=== PATIENT | female | born 2005 | race Caucasian/White ===

== ENCOUNTER 2023-03-31 09:56 | Emergency (ER) | payer OTHER, MEDICAID, SELFPAY ==
--- NOTE | 2023-03-31 10:08 | ECG_ITS ---
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 Measurements Intervals [place] Rate: 128 P: 75 NC: 155 QRS: 75 QRSD: 96 T: 56 QT: 334 QTc: 489 Interpretive Statements SINUS TACHYCARDIA INCOMPLETE RIGHT BUNDLE BRANCH BLOCK [90+ ms QRS DURATION, TERMINAL R IN V1/V2, 40+ ms S IN I/aVL/V4/V5/V6] NONSPECIFIC T-WAVE ABNORMALITY ABNORMAL RHYTHM ECG No previous ECG available for comparison Electronically Signed On 03-31-2023 20:55:20 INTERIOR PLANT CARETAKER by Nathaniel Mack M.D. [id number]
[2023-03-31 10:13] VITALS: BP 140/90; PULSE 121; RESP 18; TEMP 36.6; O2SAT 100; BMI 25.0
--- NOTE | 2023-03-31 10:13 | XR_ITS ---
WS: [id number] Portable AP upright chest, 03/31/2023 Clinical Data: chest pain Comparison: None. Findings: No nodules, masses or effusions are seen. The heart is normal. The pulmonary vascularity is not increased. No pneumonia or pneumothorax is seen. Impression: Negative chest.
--- NOTE | 2023-03-31 10:54 | ED_ITS ---
HPI - General Adult General: Chief complaint: Chest Pain Stated complaint: tightness in chest, N/V Time Seen by Provider: 03/31/23 10:27 Source: patient Mode of arrival: ambulatory Limitations: no limitations History of Present Illness: Patient is a 18-year-old female with no known past medical history here for concerns of intermittent episodes of chest pain over the past several months. She also over the past few days noted high blood pressure readings at home with systolics being in the 140s-150s and diastolics being in the 90s-100s. She states she does not routinely check her blood pressure so is not sure what it averages. Patient states she has seen her primary care provider for the chest pains. She did wear a Holter monitor back in December. She reported 26 events of dizziness and rapid/fast heartbeat but no significant arrhythmias were noted with the symptoms. Remainder of Holter monitoring results were normal. Patient states she has not noticed any shortness of breath, orthopnea, lower extremity swelling. Reports intermittent headaches but not sure if these correlate to her high blood pressure readings. Has been having the headaches for a while now . She has not had any fevers or recent illness. Onset (ago): month(s) Location: head and chest Pain Consistency: intermittent Relieving factors: none Exacerbating factors: none Associated symptoms: Reports chest pain, headache(s) and nausea; Deny confusion, dyspnea, rash, palpitations, syncope or vomiting Review of Systems Const: Denies: fever(s) or chills Eyes: Denies: change in vision or blurry vision Card: Reports: chest pain; Denies: palpitations, irregular heart rhythm, edema, swelling of feet/ankles, lightheadedness, syncope, pre-syncope, dyspnea on exertion, orthopnea, leg pain with exertion or acrocyanosis Resp: Denies: dyspnea, productive cough, non-productive cough, wheezing, pain on inspiration, hemoptysis or chest congestion GI: Reports: nausea; Denies: abdominal pain, vomiting, heartburn or diarrhea : Denies: flank pain or dysuria Musc: Denies: neck pain, back pain, extremity pain, extremity swelling or joint pain Skin/Breast: Denies: rash Neuro: Reports: headache(s); Denies: numbness in extremities, weakness in extremities, sensory changes, difficulty walking, dizziness, vertigo, confusion, behavioral changes, Slurred speech present or difficulty communicating thoughts Physical Exam Const: COMMON NORMALS: no acute distress, average body habitus, patient oriented x3, no limitations, healthy appearing, alert and well nourished GENERAL APPEARANCE: cooperative ORIENTATION/CONSCIOUSNESS: Yes awake, Yes oriented to person, Yes oriented to place and Yes oriented to time HENMT: COMMON NORMALS: normocephalic and atraumatic HEAD & SCALP: normal to inspection, normocephalic and atraumatic Eye: COMMON NORMALS: no scleral icterus Neck/C-Spine: COMMON NORMALS: full ROM, no lymphadenopathy, supple and no meningeal signs Chest: COMMONS NORMALS: normal inspection of the chest and normal palpation of entire chest wall Resp: COMMON NORMALS: normal respiratory effort and clear to auscultation bilaterally AUSCULTATION: clear to auscultation bilaterally Cardio: COMMON NORMALS: regular rate and regular rhythm RATE: regular rate RHYTHM: regular rhythm OTHER: tachycardic upon arrival to the ED but this has subsided throughout her stay GI: COMMON NORMALS: Normal to inspection, nondistended, normoactive bowel sounds present, Soft to palpation, non-tender, No hepatosplenomegaly present and no masses PALPATION: Yes Soft to palpation and Yes No hepatosplenomegaly present : COMMON NORMALS: Yes no CVA tenderness BLADDER/KIDNEY EXAM: Yes no CVA tenderness Back/Pelvis: COMMON NORMALS: no CVA tenderness and thoracic and lumbar spine normal to inspection Extremity: COMMON NORMALS: normal to inspection GENERAL: Yes normal exam except as noted Neuro: MARIO COMA SCALE: document GCS findings Mario coma scale eye op ening: Spontaneous Mario coma scale verbal response: Orientated Padroni coma scale motor response: Obey commands Mario coma scale total score: 15 COMMON NORMALS: patient oriented x3, moves all extremities, no focal motor deficits, no sensory deficits noted and gait normal SENSORIUM/ORIENTATION: Yes alert, Yes oriented to person, Yes oriented to place and Yes oriented to time MENINGEAL SIGNS: Yes no meningeal signs Skin: COMMON NORMALS: no rashes or lesions noted GENERAL SKIN EXAM: no rashes or lesions noted Course Vital Signs: Vital signs: Vital Signs Temperature 97.9 F 03/31/23 10:13 Pulse Rate 92 03/31/23 12:00 Respiratory Rate 18 03/31/23 12:00 Blood Pressure 158/93 03/31/23 12:00 Pulse Oximetry 100 03/31/23 12:00 Oxygen Delivery Me thod Room Air 03/31/23 12:00 MDM - General Adult Medical Decision Making Blood pressure has been elevated here with two separate readings with systolics being 140s?150s/90s. Blood work is normal. CXR negative. EKG obtained in triage showing sinus tachycardia. Again tachycardia resolved once she got back to a room and she remained normal sinus throughout her stay. Cardiac enzymes not ordered as she has had intermittent pains for months. I recommend she keep a detailed BP log and discuss with primary care. She is a young, normal weight, healthy appearing individual whom I feel work up for possible causes of neelam longoria hypertension is warranted. She is requesting a referral to cardiology-this will be provided. Return to ED precautions given. Lab Data 03/31/23 11:02 03/31/23 11:02 Laboratory Results WBC 5.53 10^3/uL (4.5-13.0) 03/31/23 11:02 RBC 4.52 10^6/uL (3.85-5.65) 03/31/23 11:02 Hgb 13.30 g/dL (12.4-14.8) 03/31/23 11:02 Hct 40.1 % (36-47) 03/31/23 11:02 MCV 88.7 fl (85-98) 03/31/23 11:02 MCH 29.4 pg (27-33) 03/31/23 11:02 MCHC 33.2 g/dL (30-55) 03/31/23 11:02 RDW 11.9 % (12.1-15.1) L 03/31/23 11:02 Plt Count 275 10^3/cmm (157-399) 03/31/23 11:02 MPV 8.8 fL (7.4-10.4) 03/31/23 11:02 Neut % (Auto) 59.3 % 03/31/23 11:02 Lymph % (Auto) 32.9 % 03/31/23 11:02 [place] % (Auto) 5.6 % 03/31/23 11:02 Eos % (Auto) 1.8 % 03/31/23 11:02 Baso % (Auto) 0.4 % 03/31/23 11:02 Neut # (Auto) 3.28 10^3/uL (1.8-8.0) 03/31/23 11:02 Lymph # (Auto) 1.8 10^3/uL (1.5-6.5) 03/31/23 11:02 [place] # (Auto) 0.3 10^3/uL (0.2-0.9) 03/31/23 11:02 Eos # (Auto) 0.1 10^3/uL (0.0-0.8) 03/31/23 11:02 Baso # (Auto) 0.0 10^3/uL (0.0-0.1) 03/31/23 11:02 Nucleated RBC % (auto) 0 % 03/31/23 11:02 Nucleated RBCs # 0.0 /100WBC 03/31/23 11:02 Sodium 138 mmol/L (136-145) 03/31/23 11:02 Potassium 4.3 mmol/L (3.5-5.1) 03/31/23 11:02 Chloride 104 mmol/L (98-107) 03/31/23 11:02 Carbon Dioxide 23 mmol/L (22-29) 03/31/23 11:02 Anion Gap 15.3 (5-19) 03/31/23 11:02 BUN 6 mg/dL (6-20) 03/31/23 11:02 Creatinine 0.6 mg/dL (0.5-0.9) 03/31/23 11:02 GFR Calculation 127.5 mL/min (90-130) 03/31/23 11:02 Glucose 96 mg/dL (65-115) 03/31/23 11:02 Calculated Osmolality 283 mOsm/kg (285-295) L 03/31/23 11:02 Calcium 9.5 mg/dL (8.5-10.5) 03/31/23 11:02 Total Bilirubin 0.2 mg/dL (0.15-1.2) 03/31/23 11:02 AST 12 U/L (0-32) 03/31/23 11:02 ALT 18 U/L (0-33) 03/31/23 11:02 Alkaline Phosphatase 47 U/L (35-105) 03/31/23 11:02 Total Protein 7.4 g/dL (6.6-8.7) 03/31/23 11:02 Albumin 4.3 g/dL (3.5-5.2) 03/31/23 11:02 Globulin 3.1 g/dL (1.3-4.6) 03/31/23 11:02 HCG, Qual Negative (Negative) 03/31/23 11:02 Urine Color Yellow (Yellow) 03/31/23 11:28 Urine Appearance Sl hazy (CLEAR) A 03/31/23 11:28 Urine pH 7 (5-7) 03/31/23 11:28 Ur Specific [place] 1.005 (1.005-1.030) 03/31/23 11:28 Urine Protein Neg (Negative) 03/31/23 11:28 Urine Glucose (UA) Norm (Normal) 03/31/23 11:28 Urine Ketones Negative (Negative) 03/31/23 11:28 Urine Blood 2+ (Negative) H 03/31/23 11:28 Urine Nitrate Negative (Negative) 03/31/23 11:28 Urine Bilirubin Neg (Negative) 03/31/23 11:28 Urine Urobilinogen Norm mg/dL (Negative) 03/31/23 11:28 Ur Leukocyte Esterase Negative (Negative) 03/31/23 11:28 Urine RBC 0-4 /hpf (0-2) H 03/31/23 11:28 Urine WBC 10-15 /hpf (0-5) H 03/31/23 11:28 Ur Squamous Epith Cells 10-15 /hpf (0-5) H 03/31/23 11:28 Amorphous Sediment 1+ /hpf 03/31/23 11:28 Urine Bacteria Trace /hpf (NONE) 03/31/23 11:28 All radiology interpretation(s) finalized by discharge Discharge Plan Discharge Patient Disposition: Home Clinical Impression: Elevated blood pressure reading, Atypical chest pain Condition: Stable Prescriptions: No Action No Known Home Medications Discharge Orders: Discharge ED (Routine); Ordered 03/31/23 Ordered By: Miranda Thomson Referrals: Nehemiah Ferrer MD [Primary Care Provider] - Activity Restrictions/Additional Instructions: You need to begin keeping a detailed blood pressure log (take a pressure in the morning, afternoon, and evening) and follow up with your primary care provider. If it continually runs high then your provider will assess you for the need to start anti-hypertensive medication. They may also evaluate further into secondary causes for your elevated blood pressures. Stand Alone Forms: Work/School Release Coding Level of Care Code ED Director Of Marketing And Promotions for Rosalia Washington
[2023-03-31 11:12] LABS: Basophils % 0.4 %; Eosinophils # 0.1 10^3/uL (0.0-0.8); Eosinophils % 1.8 %; Hematocrit 40.1 % (36-47); Lymphocytes # 1.8 10^3/uL (1.5-6.5); Lymphocytes % 32.9 %; Mean Corpuscular HGB Conc 33.2 g/dL (30-55); Mean Corpuscular Hemoglobin 29.4 pg (27-33); Mean Corpuscular Volume 88.7 fl (85-98); Mean Platelet Volume 8.8 fL (7.4-10.4); Monocytes # 0.3 10^3/uL (0.2-0.9); Monocytes % 5.6 %; Neutrophils # 3.28 10^3/uL (1.8-8.0); Neutrophils % 59.3 %; Nucleated Red Blood Cells % 0 %; Platelet Count 275 10^3/cmm (157-399); Red Blood Count 4.52 10^6/uL (3.85-5.65); Red Cell Distribution Width 11.9 % (12.1-15.1); White Blood Count 5.53 10^3/uL (4.5-13.0)
[2023-03-31 11:31] LABS: Alanine Aminotransferase 18 U/L (0-33); Albumin Level 4.3 g/dL (3.5-5.2); Alkaline Phosphatase 47 U/L (35-105); Anion Gap 15.3 (5-19); Aspartate Amino Transferase 12 U/L (0-32); Blood Urea Nitrogen 6 mg/dL (6-20); Calcium 9.5 mg/dL (8.5-10.5); Carbon Dioxide 23 mmol/L (22-29); Chloride 104 mmol/L (98-107); Creatinine Clr Calc Pharmacy 150.4094; Globulin 3.1 g/dL (1.3-4.6); Glomerular Filtration Rate 127.5 mL/min (90-130); Glucose 96 mg/dL (65-115); Osmolality Calculated 283 mOsm/kg (285-295); Potassium 4.3 mmol/L (3.5-5.1); Sodium 138 mmol/L (136-145); Total Bilirubin 0.2 mg/dL (0.15-1.2); Total Protein 7.4 g/dL (6.6-8.7)
[2023-03-31 11:44] LABS: HCG, Serum Qual Negative (Negative)
[2023-03-31 11:53] LABS: Add Urine Culture? No; Add Urine Microscopic? YES; Amorphous Sediment Urine 1+ /hpf; Bacteria Urine TRACE /hpf; Bilirubin Urine Neg (Negative); Blood Urine 2+ (Negative); Glucose Urine UA Norm (Normal); Ketones Urine Negative (Negative); Leukocyte Esterase Urine Negative (Negative); Nitrate Urine Negative (Negative); Protein Urine Neg (Negative); RBC Urine 0-4 /hpf (0-2); Specific Gravity, Urine 1.005 (1.005-1.030); Urine Appearance SL Hazy (CLEAR); Urine Color Yellow (Yellow); Urobilinogen Urine Norm (Negative); pH Urine 7 (5-7)
[2023-03-31 12:00] VITALS: BP 158/93; PULSE 92; RESP 18; O2SAT 100
--- NOTE | 2023-03-31 12:30 | DCPLANNER ---
Referral was sent to heart care at 1230 on 03/31.. Clinic to contact patient
== END 2023-03-31 12:29 | disposition home or self-care (01) ==
PROVIDERS: Emergency Provider Physician Assistant; PCP Family Medicine
DX: R07.89 Other chest pain (principal); R03.0 Elevated blood-pressure reading, without diagnosis of hypertension; R00.0 Tachycardia, unspecified
CPT/HCPCS: 36415; 71045; 80053; 81001; 84703; 85025; 93005; 99285

== ENCOUNTER → 2023-05-17 13:22 | Outpatient (BNVA) | payer OTHER, MEDICAID, SELFPAY | PROVIDERS: PCP Family Medicine; Referring Provider Physician Assistant; Visit Provider Internal Medicine | DX: R07.89 Other chest pain (principal); R00.0 Tachycardia, unspecified | CPT/HCPCS: 93005 ==

== ENCOUNTER 2023-05-25 06:04 | Outpatient (CLI) | payer OTHER, MEDICAID, SELFPAY ==
--- NOTE | 2023-05-25 06:30 | USCV_ITS ---
Brooke Wolf Age: 18 Gender: F : 2005 Exam Date: 05/25/2023 06:26 Ordering Phys: Apolniar Torres M.D ([email or web address]) Technologist: [place] [facility] [place]: htn BP: 140 / 90 HR: 76 Rhythm: Sinus Technical Quality: Adequate MEASUREMENTS (Male / Female) Normal Values 2D ECHO LV Diastolic Diameter PLAX 4.5 cm 4.2 - 5.9 / 3.9 - 5.3 cm LV Systolic Diameter PLAX 2.7 cm IVS Diastolic Thickness 1.0 cm 0.6 - 1.0 / 0.6 - 0.9 cm IVS Systolic Thickness 1.3 cm LVPW Diastolic Thickness 1.0 cm 0.6 - 1.0 / 0.6 - 0.9 cm LVPW Systolic Thickness 1.3 cm LVOT Diameter 2.0 cm LV Ejection Fraction 2D Teich 71.1 % LV Ejection Fraction MOD 2C 69.7 % LV Ejection Fraction 2C AL 69.7 % LA Diameter 2.8 cm IVC Diameter 1.4 cm M-MODE MV E Point Septal Separation 0.8 cm DOPPLER AV Peak Velocity 149.0 cm/s LVOT Peak Velocity 106.0 cm/s AV Area Cont Eq vti 2.1 cm squared AV Area Cont Eq pk 2.2 cm squared MV Area PHT 5.0 cm squared Mitral E to A Ratio 1.8 MV E' Velocity 58.5 cm/s Mitral E to MV E' Ratio 6.8 Mitral E to LV E' Lateral Ratio 4.9 Mitral E to LV E' Septal Ratio 11.1 TR Peak Velocity 136.3 cm/s TR Peak Gradient 7.4 mmHg TV Peak E Velocity 88.0 cm/s Right Atrial Pressure 3.0 mmHg Pulmonary Artery Systolic Pressu 10.4 mmHg FINDINGS Left Ventricle Left ventricle is normal in size. LV systolic function is normal with EF of 60 to 65%. No regional wall motion abnormalities are seen. Right Ventricle Normal in size and function. Right Atrium Normal in size Left Atrium Normal in size Mitral Valve Structurally normal mitral valve. No significant stenosis or regurgitation. Aortic Valve Structurally normal aortic valve. No significant stenosis or regurgitation. Tricuspid Valve Trace tricuspid regurgitation. Insufficient TR jet to calculate RVSP. Pulmonic Valve Not well-visualized Pericardium Normal Aorta Normal in size IVC Appears to be normal CONCLUSIONS LV systolic function is normal with EF of 60 to 65%. Trace tricuspid regurgitation No comparison studies are available Apolinar Torres MD (Electronically Signed) Final Date: 27 May 2023 16:03 S
--- NOTE | 2023-05-25 07:15 | USCV_ITS ---
Brooke Wolf Age: 18 Gender: F : 2005 Exam Date: 05/25/2023 06:41 Ordering Phys: Apolinar Torres M.D ([email or web address]) Technologist: [place] [facility] [place]: htn Aortic Velocity @ SMA (cm/s) 82.6 RIGHT KIDNEY LEFT KIDNEY Velocity (cm/s) Velocity (cm/s) Sys/Ely Sys/Ely Resistive Index Resistive Index 171.9 / 56.8 0.67 Proximal Renal Artery 81.7 / 19.7 0.76 169.1 / 59.6 0.65 Mid Renal Artery 95.7 / 38.9 0.59 126.2 / 51.1 0.60 Distal Renal Artery 74.9 / 30.3 0.59 97.3 / 31.8 0.67 Hilar 98.6 / 98.6 0.00 60.4 / 18.4 0.69 Upper Pole 79.1 / 27.0 0.66 83.9 / 29.9 0.64 Mid Pole 86.7 / 13.8 0.82 70.6 / 70.6 0.00 Lower Pole 49.1 / 19.8 0.60 2.10 Renal Aortic Ratio 1.16 Accleration Index (cm/sec2) 1868.0 Hilar 1882.0 0 0 901.00 Upper Pole 1982.0 0 1129.0 Mid Pole 1075.0 0 0 939.00 Lower Pole 492.00 93.4 Kidney Length (mm) 101.1 FINDINGS Comparison: none. Minimal elevation of right renal artery velocity. Normal size kidneys. CONCLUSIONS There is no sonographic evidence of hemodynamically significant renal artery stenosis bilaterally. Dr. Ivy Aviles DO (Electronically Signed) Final Date: 25 May 2023 09:56 S
== END 2023-05-25 06:05 | disposition home or self-care (01) ==
LOC: RAD 06:04
PROVIDERS: PCP Family Medicine; Visit Provider Internal Medicine
DX: R07.9 Chest pain, unspecified (principal); I10 Essential (primary) hypertension
CPT/HCPCS: 93306; 93975

== ENCOUNTER 2023-06-14 16:39 | Outpatient (CLI) | payer OTHER, MEDICAID, SELFPAY ==
[2023-06-24 23:20] LABS: Metanephrines Total Urine 1050 mL; Urine Metanephrines Total 276 mcg/24 h (94-604)
== END 2023-06-14 16:40 | disposition home or self-care (01) ==
PROVIDERS: PCP Family Medicine; Visit Provider Internal Medicine
DX: I10 Essential (primary) hypertension (principal)
CPT/HCPCS: 83835

== ENCOUNTER → 2024-04-03 14:20 | Outpatient (BNVA) | payer OTHER, MEDICAID, SELFPAY | PROVIDERS: PCP Family Medicine; Visit Provider Nurse Practitioner Family | DX: J02.9 Acute pharyngitis, unspecified (principal); B34.9 Viral infection, unspecified | CPT/HCPCS: 87081; 87880 ==

== ENCOUNTER → 2024-05-10 12:02 | Outpatient (BNVA) | payer OTHER, SELFPAY | PROVIDERS: PCP Family Medicine; Visit Provider Family Medicine | DX: R00.0 Tachycardia, unspecified (principal); F51.04 Psychophysiologic insomnia; Z76.89 Persons encountering health services in other specified circumstances | CPT/HCPCS: 80048; 84439; 84443; 85025 ==

== ENCOUNTER 2024-12-18 13:02 | Emergency (ER) | payer SELFPAY ==
[2024-12-18 13:12] VITALS: BP 124/78; PULSE 66; RESP 14; TEMP 36.9; O2SAT 98; BMI 28.5
--- NOTE | 2024-12-18 13:42 | CT_ITS ---
WS: [id number] CT ABDOMEN PELVIS TECHNIQUE: Contrast-enhanced CT of the abdomen and pelvis with coronal and sagittal reformatted images. CLINICAL INFORMATION: abd pain COMPARISON: None. DLP: 538.[address] scans at [facility] use at least one of these dose optimization techniques: automated exposure control; mA and/or kV adjustment per patient size (includes targeted exams where dose is matched to clinical indication); or iterative reconstruction. FINDINGS: Appendix not definitely visualized but no evidence of acute appendicitis. Normal ileocecal valve. Few fluid-filled normal caliber small bowel loops in the RIGHT lower quadrant. No evidence of high-grade obstruction. Normal-appearing multi follicular ovaries bilaterally. Anteverted uterus. Trace fluid in the cul-de-sac. Hepatomegaly. Normal portal vein and splenic vein. Normal spleen. Normal GE junction. Normal gallbladder. Normal celiac and SMA. Normal pancreas. Adrenal glands are normal. No hydronephrosis in either kidney. Normal sigmoid colon. Moderate constipation in the RIGHT colon and cecum and transverse colon. Calcified granuloma RIGHT lower lobe. CT/CT abdomen pelvis w con* [id number] IMPRESSION: 1. Appendix not definitely visualized but no evidence of acute appendicitis. 2. Multi follicular ovaries bilaterally. Trace fluid in the cul-de-sac. 3. Moderate RIGHT colon and transverse colon constipation extending to the cec um. 4. Normal caliber small bowel loops in the RIGHT lower quadrant with an air-fl uid level. No evidence of obstruction. 5. No other acute findings.
--- NOTE | 2024-12-18 13:44 | W.ED.ABDPA2 ---
HPI - Abdominal Pain General: Chief Complaint: Abdominal Pain Stated Complaint: R side ABD Pain Time Seen by Provider: 12/18/24 13:31 Source: patient Mode of arrival: ambulatory Limitations: no limitations History of Present Illness: 19-year-old female who states that she has been having right sided abdominal pain since Monday states been intermittent in nature pain is currently 2 out of 10 states its whole right side right lower and right upper she denies any vomiting denies any fevers. Denies any diarrhea. She denies any worse improved factors. No history of surgeries in the past Associated Symptoms: Denies chills, diarrhea, dysuria, fever(s), nausea and vomiting Related Data Home Medications ?Medication ?Instructions ?Recorded ?Confirmed naproxen sodium 220 mg tablet 440 mg PO Q12H PRN Fever Or Pain 12/18/24 12/18/24 Previous Rx's ?Medication ?Instructions ?Recorded norgestimate 0.25 mg-ethinyl 1 tab PO DAILY #84 tabs 09/23/24 estradiol 0.035 mg tablet (Sprintec (28)) Allergies Allergy/AdvReac Type Severity Reaction Status Date / Time shellfish derived Allergy Severe ALGY-Anaphy Verified 12/18/24 13:16 laxis hazelnut Allergy Intermediate rash Verified 12/18/24 13:16 cetirizine (From [facility]) Allergy ALGY-Hives Verified 12/18/24 13:16 Fragrance Allergy Intermediate hives Uncoded 12/18/24 13:16 Review of Systems Const: Denies: fever(s), chills, body aches or change in appetite ENMT: Denies: throat pain or dental pain Card: Denies: chest pain Resp: Denies: dyspnea GI: Reports: abdominal pain; Denies: nausea, vomiting or diarrhea : Denies: dysuria Musc: Denies: neck pain or back pain Skin/Breast: Denies: rash Neuro: Denies: headache(s) PFSH ED PFSH: Medical History (Updated 12/18/24 @ 15:17 by Richard Aleman MD) Tachycardia has seen cardio; told it was POTS Chronic insomnia Surgical History History of tonsillectomy Family History Father No problems noted. 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 Physical Exam Const: COMMON NORMALS: no acute distress, patient oriented x3 and healthy appearing HENMT: COMMON NORMALS: normocephalic and atraumatic HEAD & SCALP: normocephalic and atraumatic Eye: COMMON NORMALS: conjunctivae normal CONJUNCTIVA: Yes conjunctivae normal Neck/C-Spine: COMMON NORMALS: full ROM and supple Chest: COMMONS NORMALS: normal inspection of the chest Resp: COMMON NORMALS: normal respiratory effort Cardio: COMMON NORMALS: regular rate, regular rhythm and No murmurs present (Cardio) RATE: regular rate RHYTHM: regular rhythm GI: COMMON NORMALS: Normal to inspection, nondistended, normoactive bowel sounds present, Soft to palpation and no masses PALPATION: Yes Soft to palpation OTHER: right sided abd tenderness Extremity: COMMON NORMALS: normal to inspection and full ROM Neuro: COMMON NORMALS: patient oriented x3, moves all extremities and no focal motor deficits Psych: COMMON NORMALS: mental status grossly normal, Normal thought process present and cooperative THOUGHT PROCESS: Normal thought process present Skin: COMMON NORMALS: no rashes or lesions noted and no wounds GENERAL SKIN EXAM: no rashes or lesions noted Course Vital Signs: Vital signs: Vital Signs Temperature 98.4 F 12/18/24 13:12 Pulse Rate 66 12/18/24 13:12 Respiratory Rate 14 12/18/24 13:12 Blood Pressure 125/73 12/18/24 14:14 Pulse Oximetry 100 12/18/24 14:14 Oxygen Delivery Me thod Room Air 12/18/24 13:12 MDM - Abdominal Pain Medical Decision Making Patient presents with abdominal pain exam here is benign CT showed no acute findings she feels improved she stable for discharge follow-up PCP return if worsening. Medical Records I reviewed the patient's medical records. Lab Data I reviewed the patient's lab results. 12/18/24 13:37 12/18/24 13:37 Labs/Radiology: Radiology Impressions Abdomen/Pelvis CT 12/18/24 13:42 IMPRESSION: 1. Appendix not definitely visualized but no evidence of acute appendicitis. 2. Multi follicular ovaries bilaterally. Trace fluid in the cul-de-sac. 3. Moderate RIGHT colon and transverse colon constipation extending to the cecum. 4. Normal caliber small bowel loops in the RIGHT lower quadrant with an air-fluid level. No evidence of obstruction. 5. No other acute findings. Laboratory Results WBC 6.58 10^3/uL (3.29-11.43) 12/18/24 13:37 RBC 4.28 10^6/uL (3.85-5.65) 12/18/24 13:37 Hgb 12.50 g/dL (11.27-16.99) 12/18/24 13:37 Hct 38.9 % (36-47) 12/18/24 13:37 MCV 90.9 fl (85-98) 12/18/24 13:37 MCH 29.2 pg (27-33) 12/18/24 13:37 MCHC 32.1 g/dL (30-55) 12/18/24 13:37 RDW 12.2 % (12.1-15.1) 12/18/24 13:37 Plt Count 321 10^3/cmm (157-399) 12/18/24 13:37 MPV 9.0 fL (7.4-10.4) 12/18/24 13:37 Neut % (Auto) 46.7 % 12/18/24 13:37 Lymph % (Auto) 44.7 % 12/18/24 13:37 [place] % (Auto) 7.0 % 12/18/24 13:37 Eos % (Auto) 1.1 % 12/18/24 13:37 Baso % (Auto) 0.3 % 12/18/24 13:37 Neut # (Auto) 3.08 10^3/uL (1.8-7.7) 12/18/24 13:37 Lymph # (Auto) 2.9 10^3/uL (0.8-4.8) 12/18/24 13:37 [place] # (Auto) 0.5 10^3/uL (0.2-0.9) 12/18/24 13:37 Eos # (Auto) 0.1 10^3/uL (0.0-0.8) 12/18/24 13:37 Baso # (Auto) 0.0 10^3/uL (0.0-0.1) 12/18/24 13:37 Nucleated RBC % (auto) 0 % 12/18/24 13:37 Nucleated RBCs # 0.0 /100WBC 12/18/24 13:37 Sodium 141 mmol/L (136-145) 12/18/24 13:37 Potassium 3.8 mmol/L (3.5-5.1) 12/18/24 13:37 Chloride 104 mmol/L (98-107) 12/18/24 13:37 Carbon Dioxide 24 mmol/L (22-29) 12/18/24 13:37 Anion Gap 16.8 (5-19) 12/18/24 13:37 BUN 11 mg/dL (6-20) 12/18/24 13:37 Creatinine 0.7 mg/dL (0.5-0.9) 12/18/24 13:37 GFR Calculation 105.6 mL/min (90-130) 12/18/24 13:37 Glucose 91 mg/dL (65-115) 12/18/24 13:37 Calculated Osmolality 291 mOsm/kg (285-295) 12/18/24 13:37 Calcium 9.2 mg/dL (8.5-10.5) 12/18/24 13:37 Total Bilirubin 0.3 mg/dL (0.15-1.2) 12/18/24 13:37 AST 20 U/L (0-32) 12/18/24 13:37 ALT 33 U/L (0-33) 12/18/24 13:37 Alkaline Phosphatase 80 U/L (35-105) 12/18/24 13:37 Total Protein 7.4 g/dL (6.6-8.7) 12/18/24 13:37 Albumin 4.2 g/dL (3.5-5.2) 12/18/24 13:37 Globulin 3.2 g/dL (1.3-4.6) 12/18/24 13:37 Lipase 31 U/L (13-60) 12/18/24 13:37 HCG, Qual Negative (Negative) 12/18/24 13:37 Urine Color Yellow (Yellow) 12/18/24 13:24 Urine Appearance Clear (CLEAR) 12/18/24 13:24 Urine pH 6.0 (5-7) 12/18/24 13:24 Ur Specific [place] 1.026 (1.005-1.030) 12/18/24 13:24 Urine Protein Negative (Negative) 12/18/24 13:24 Urine Glucose (UA) Negative (Normal) 12/18/24 13:24 Urine Ketones 1+ (Negative) H 12/18/24 13:24 Urine Blood Negative (Negative) 12/18/24 13:24 Urine Nitrate Negative (Negative) 12/18/24 13:24 Urine Bilirubin Negative (Negative) 12/18/24 13:24 Urine Urobilinogen 1.0 mg/dL (Negative) 12/18/24 13:24 Ur Leukocyte Esterase Negative (Negative) 12/18/24 13:24 Urine RBC 0-2 /hpf (0-2) 12/18/24 13:24 Urine WBC 0-5 /hpf (0-5) 12/18/24 13:24 Ur Squamous Epith Cells 6-10 /hpf (0-5) 12/18/24 13:24 Amorphous Sediment Not Reportable 12/18/24 13:24 Urine Bacteria 2+ /hpf (NONE) H 12/18/24 13:24 Hyaline Casts 0.81 /lpf 12/18/24 13:24 All radiology interpretation(s) finalized by discharge Discharge Plan Discharge Patient Disposition: Home Clinical Impression: Abdominal pain Condition: Stable Prescriptions: No Action norgestimate-ethinyl estradiol [Sprintec (28)] 0.25-35 mg-mcg tablet 1 tab PO DAILY Qty: 84 3RF naproxen sodium 220 mg Tablet 440 mg PO Q12H PRN (Reason: Fever Or Pain) Discharge Orders: Discharge ED (Routine); Ordered 12/18/24 Ordered By: Richard Aleman Referrals: Karmen Barrow MD [Primary Care Provider, Family Practice] - 4-7 days Discharge Diet: Advance as tolerated Discharge Activity: Resume usual activity Patient Instructions: Abdominal Pain (ED) Print Language: Italian Coding Level of Care Code ED Polysomnography Technologist for Rosalia Washington
[2024-12-18 13:54] LABS: Hematocrit 38.9 % (36-47); Hemoglobin 12.50 g/dL (11.27-16.99); Mean Corpuscular HGB Conc 32.1 g/dL (30-55); Mean Corpuscular Hemoglobin 29.2 pg (27-33); Mean Corpuscular Volume 90.9 fl (85-98); Nucleated Red Blood Cells % 0 %; Platelet Count 321 10^3/cmm (157-399); Red Blood Count 4.28 10^6/uL (3.85-5.65); White Blood Count 6.58 10^3/uL (3.29-11.43)
[2024-12-18 14:06] LABS: Alanine Aminotransferase 33 U/L (0-33); Albumin Level 4.2 g/dL (3.5-5.2); Alkaline Phosphatase 80 U/L (35-105); Aspartate Amino Transferase 20 U/L (0-32); Blood Urea Nitrogen 11 mg/dL (6-20); Calcium 9.2 mg/dL (8.5-10.5); Carbon Dioxide 24 mmol/L (22-29); Chloride 104 mmol/L (98-107); Creatinine Clr Calc Pharmacy 135.8589; Globulin 3.2 g/dL (1.3-4.6); Glucose 91 mg/dL (65-115); Lipase 31 U/L (13-60); Osmolality Calculated 291 mOsm/kg (285-295); Sodium 141 mmol/L (136-145); Total Protein 7.4 g/dL (6.6-8.7)
[2024-12-18 14:11] LABS: Glucose Urine UA Negative (Normal); Nitrate Urine Negative (Negative); Specific Gravity, Urine 1.026 (1.005-1.030)
[2024-12-18 14:14] VITALS: BP 125/73; O2SAT 100
[2024-12-18 14:16] LABS: Add Urine Microscopic? YES
[2024-12-18 14:17] LABS: HCG, Serum Qual Negative (Negative)
[2024-12-18 14:28] LABS: Anion Gap 16.8 (5-19); Potassium 3.8 mmol/L (3.5-5.1)
[2024-12-18] MEDS: iohexol 350 mg/mL 500 mL Btl (per mL) IV (14:34)
[2024-12-18 15:24] VITALS: BP 123/72; PULSE 70; RESP 16; O2SAT 100
--- OUTSIDE RECORDS SUMMARY | 2024-12-20 01:48 | XMS_ITS | Patient Health Record ---
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 Out Name Role Phone Eduard Owen Primary Care Provider [phone] [place] [address] [facility] Allergies Allergen (clinical drug ingredient) Drug/Non Drug Allergy documented on EMR Reaction Allergy Type Onset Date Status Cefzil Unknown Drug Allergy Active Zyrtec Allergy Unknown Drug Allergy In active Reason For Referral No Information Medications Medication SIG (Take, Route, Frequency, Duration) Notes Start Date End Date Status Depo-Provera 150 MG/ML 1 mL Intramuscula r for 30 day(s) Active Ciprofloxacin HCl 500 MG 1 tablet Orally twice a day for 7 day(s) 06/28/2021 Not-Taking Immunizations Vaccine Route Administration Date Status Comme nts Hepatitis A-Ped-VFC IM Intramuscular 10/10/2012 Administer ed Social History Tobacco Use: Social History Observation Description Date Details (start date - stop date) Never Smoker NA - NA Sex Assigned At : Social History Observation Description Sex Assigned At Female Do you smoke for age 13 and up Question Answer Notes Are you a: never smoker Smokeless Tobacco Question Answer Notes Tobacco use other than smoking No Problems Problem Type SNOMED Code ICD Code Onset Dates Problem Status W/U Status Risk Notes Problem 396764031 Sore throat (J02.9) Active confirmed Problem 08587023 Allergic sinusitis (J30.9) Active confirmed Problem 64869370 Other chronic pain (G89.29) Active confirmed Problem 308164292 Fever in other diseases (R50.81) Active confirmed Problem 449297513 Allergy to perfume (Z91.09) Active confirmed Problem 58518715 Allergic rhinitis, unspecified chronicity, unspecified seasonality, unspecified trigger (J30.9) Active confirmed Plan Of Treatment No Information Insurance Providers Payer Name Payer Address Payer Phone Subscriber Number Group Number Insured Name Patient Relationship to Insured Coverage Start Date Coverage End Date Medicaid [address] [place] [id number] Brooke Wolf Self - patient is the insured Medical (General) History Medical History History ICD Code bladder trouble Loss of weight Surgical History Surgery Date(Month/Year) tonsillectomy and adenoidectomy ET Tube placement Hospitalization History Reason Date(Month/Year)
== END 2024-12-18 15:24 | disposition home or self-care (01) ==
PROVIDERS: Emergency Provider Emergency Medicine; PCP Family Medicine
DX: R10.9 Unspecified abdominal pain (principal)
CPT/HCPCS: 36415; 74177; 80053; 81001; 83690; 84703; 85025; 99285